=== PATIENT | female | born 1935 | race Two or more races ===

== ENCOUNTER → 2017-11-03 | Outpatient (CLI) | payer MEDICARE, OTHER | END | disposition home or self-care (01) | LOC: MSC 14:00 | PROVIDERS: ATTEND Anesthesiology | DX: M17.0 Bilateral primary osteoarthritis of knee (principal); M54.5 Low back pain; M25.562 Pain in left knee; M25.561 Pain in right knee; M25.9 Joint disorder, unspecified; Z79.01 Long term (current) use of anticoagulants; Z79.891 Long term (current) use of opiate analgesic; M25.512 Pain in left shoulder; M25.511 Pain in right shoulder ==

== ENCOUNTER 2017-12-01 13:15 | Outpatient (CLI) | payer MEDICARE, OTHER | END 2017-12-01 23:59 | disposition home or self-care (01) | LOC: MSC 13:15 | PROVIDERS: ATTEND Anesthesiology | DX: M25.511 Pain in right shoulder (principal); M25.512 Pain in left shoulder; M17.0 Bilateral primary osteoarthritis of knee; M54.5 Low back pain; M62.830 Muscle spasm of back; M25.9 Joint disorder, unspecified; Z79.01 Long term (current) use of anticoagulants; Z79.891 Long term (current) use of opiate analgesic ==

== ENCOUNTER 2018-03-11 08:16 | Day surgery (SDC) | payer MEDICARE, OTHER ==
[2018-03-11] MEDS ORDERED: IOHEXOL 240MG/ML 50 ML IV ONE (09:18)
[2018-03-11] MEDS ORDERED: BUPIVACAINE 0.25% 75 MG/30 ML VIAL ONE (09:18)
[2018-03-11] MEDS ORDERED: methylPREDNISolone ACETATE 40 MG/ML VIAL ONE (09:18)
[2018-03-11] MEDS ORDERED: LIDOCAINE HCL/PF 1% 30 ML SDV ONE (09:18)
== END 2018-03-11 10:45 | disposition home or self-care (01) ==
LOC: DS 08:16
PROVIDERS: ATTEND Anesthesiology
DX: M17.0 Bilateral primary osteoarthritis of knee (principal)
CPT/HCPCS: 73560-TC; A6209; J1030; J3490; Q9966